=== PATIENT | female | born 1970 | race Hispanic/Latino ===

== ENCOUNTER → 2019-07-03 | Day surgery (SDC) | payer MEDICARE ==
[~2019-07-03] MED LIST: CEFAZOLIN SOD 1 GM/NS 50ML 50 ML IV ONE; ESTRADIOL1 MG PO; FENTANYL CITRATE/PF 100MCG/2 ML INJ ONE; NAPROXEN250 MG PO
[2019-07-03 13:20] VITALS: BP 102/64
--- NOTE | 2019-07-03 13:48 | Operative Report ---
DATE OF PROCEDURE: 07/03/2019 SURGEON: Andrés López MD TESTER SOUND: Rajeev Mejia, certified PA. PREOPERATIVE DIAGNOSIS: Left carpal tunnel syndrome. POSTOPERATIVE DIAGNOSIS: Left carpal tunnel syndrome. PROCEDURE: Left endoscopic carpal tunnel release. INDICATIONS: The patient is a 48-year-old lady, who has clinic signs and symptoms consistent with left carpal tunnel syndrome. She has failed conservative management and would like to proceed with an endoscopic versus open carpal tunnel release. The risks and benefits have been explained. She states she understands and wishes to proceed. PROCEDURE IN DETAIL: The patient was brought to the operating room and placed under general anesthetic. Her left upper extremity was prepped and draped in a sterile manner. A preoperative time-out was performed. The extremity was exsanguinated and a proximal tourniquet was briefly inflated to 250 mmHg. An incision was made over the flexion crease of the left wrist. The flexor retinaculum was elevated and incised with a pair of tenotomy scissors. An elevator was used to gently tease that tenosynovium off the undersurface of the transverse carpal ligament. Dilators were placed and the hook of the hamate was palpated. The [employer] endoscope was then placed into the carpal tunnel. The undersurface of the transverse carpal ligament was cleanly visualized without evidence of soft tissue interposition. The knife was deployed and the ligament was cut from distal to proximal. A full-thickness cut was noted. Palmar fat was noted to extrude into the visibility of the wound. The proximal retinaculum was then incised under direct visualization using a pair of tenotomy scissors. The incision was then closed with 2 interrupted nylon stitches. A sterile bandage was applied. The patient was extubated and transported to the recovery room in stable condition. There was no blood loss and all needle and sponge counts were correct. Andrés López MD DR/ASHA /[id number]
== END | disposition home or self-care (01) ==
LOC: OR 09:02
PROVIDERS: ATTEND Specialist
DX: G56.02 Carpal tunnel syndrome, left upper limb (principal); M67.431 Ganglion, right wrist; Z11.59 Encounter for screening for other viral diseases; Z01.812 Encounter for preprocedural laboratory examination
CPT/HCPCS: 29848; 87635; J0690; J3010